=== PATIENT | female | born 1990 | race African-American/Black ===

== ENCOUNTER 2017-02-25 11:14 | Inpatient (IN) ==
[2017-02-25] MEDS: LACTATED RINGERS 1,000 ML IV SCH ×3 (11:30→14:54)
[2017-02-25] MEDS ORDERED: ONDANSETRON 4 MG/2 ML VIAL IV PRN ×2 (11:53→20:35)
[2017-02-25] MEDS ORDERED: ONDANSETRON 4 MG/2 ML VIAL IV ONE (11:56)
[2017-02-25] MEDS ORDERED: PROMETHAZINE 25 MG/1 ML VIAL IM ONE (11:56)
[2017-02-25] MEDS ORDERED: FAMOTIDINE 20 MG/2 ML VIAL IV ONE (11:56)
[2017-02-25] MEDS ORDERED: CITRIC ACID/SODIUM CITRATE 30 ML UDCUP PO ONE (11:56)
[2017-02-25] MEDS ORDERED: diphenhydrAMINE 50 MG/1 ML VIAL IV PRN ×2 (11:56)
[2017-02-25] MEDS ORDERED: hydrOXYzine HCL 25 MG/1 ML VIAL IM PRN (11:56)
[2017-02-25] MEDS ORDERED: fentaNYL 2 MCG/ROPIV 0.2% EPID 150 ML EPIDURAL SCH (12:00)
[2017-02-25] MEDS ORDERED: AMPICILLIN INJ 2,000 MG in SODIUM CHLORIDE 0.9% 100 ML IV ONE (12:09)
[2017-02-25 12:39] LABS: Basophils % 0.2 % (0.0-0.8); Eosinophils # 0.2 10*3/uL (0.0-0.87); Eosinophils % 1.4 % (0.00-10.9); Hemoglobin 11.7 GM/DL (12.0-16.0); Immature Granulocytes Absolute 0.12 #; Lymphocytes # 2.2 10*3/uL (1.4-4.0); Lymphocytes % 18.5 % (21.3-54.2); Mean Corpuscular HGB Conc 32.5 GM/DL (32-36); Mean Corpuscular Hemoglobin 30 PG (27-34); Mean Corpuscular Volume 91.4 FL (87-102); Mean Platelet Volume 13.1 FL (9.6-12.0); Monocytes # 1.1 10*3/uL (0.11-0.8); Monocytes % 9.3 % (1.7-12.7); Neutrophils # 8.2 10*3/uL (1.4-7.4); Neutrophils % 69.6 % (38.7-73.9); Platelet Count 172 T/CUMM (130-400); Red Blood Count 3.94 MC/CUMM (3.8-5.5); Red Cell Distribution Width 14.7 % (9.3-17.3); White Blood Count 11.7 T/CUMM (4-12)
[2017-02-25] MEDS: ePHEDrine 50 MG/ML AMP IV PRN ×2 (13:14→15:11)
[2017-02-25] MEDS ORDERED: OXYTOCIN/LR 20 UNIT/1,000 ML BAG IV ONE ×2 (15:09→20:35)
[2017-02-25 16:12] LABS: Apearance,Urine Clear (Clear); Bilirubin,Urine Negative (Negative); Blood, Urine Negative (Negative); Glucose,Urine (UA) Negative (Negative); Ketones,Urine 100 mg/dL (Negative); Nitrite,Urine Negative (Negative); Protein,Urine Negative; Urine Color Yellow (Yellow)
[2017-02-25] MEDS ORDERED: AMPICILLIN INJ 1,000 MG in SODIUM CHLORIDE 0.9% 100 ML IV SCH (16:30)
[2017-02-25 17:05] LABS: HIV Antigen/Antibody Result Nonreactive (Nonreactive); Hepatitis B Surface Ag Quant < 0.10 Index; Hepatitis B Surface Ag Result Negative (Negative); Rubella Antibody IgG 118.9 IU/ML
[2017-02-25] MEDS ORDERED: OXYTOCIN/LR 20 UNIT/1,000 ML BAG IV SCH (17:30)
[2017-02-25] MEDS ORDERED: METHYLERGONOVINE 0.2 MG/1 ML AMP ONE (19:16)
[2017-02-25] MEDS ORDERED: miSOPROStol 200 MCG TABLET ONE (19:16)
[2017-02-25] MEDS ORDERED: LIDOCAINE 1% 50 ML VIAL ONE (19:16)
[2017-02-25] MEDS ORDERED: BUTORPHANOL 2 MG/ML VIAL ONE (20:05)
[2017-02-25 20:16] LABS: Cord Venous Blood HCO3 20.3 MMOL/L; Cord Venous Blood PCO2 34.6 MMHG
[2017-02-25] MEDS ORDERED: LANOLIN 50% CREAM 0.3 OZ TUBE TOP PRN (20:35)
[2017-02-25] MEDS ORDERED: DIPH/TET/ACEL PERT BOOSTER VACCINE 0.5 ML VIAL IM ONE (20:35)
[2017-02-25] MEDS ORDERED: RHO(D) IMMUNE GLOBULIN 300 MCG SYRINGE IM ONE (20:35)
[2017-02-25] MEDS ORDERED: WITCH HAZEL PADS 100/JAR TOP PRN (20:35)
[2017-02-25] MEDS ORDERED: BISACODYL 10 MG SUPP RECTAL PRN (20:35)
[2017-02-25] MEDS ORDERED: ACETAMINOPHEN 325 MG TABLET PO PRN (20:35)
[2017-02-25] MEDS ORDERED: oxyCODONE/ACETAMINOPHEN 5-325 MG TABLET PO PRN (20:35)
[2017-02-25] MEDS ORDERED: BENZOCAINE 20%/MENTHOL 0.5% SPRAY 56 GM CAN TOP PRN (20:35)
[2017-02-25] MEDS ORDERED: HYDROCORTISONE 2.5% RECTAL CREAM 30 GM TUBE TOP PRN (20:35)
[2017-02-25] MEDS ORDERED: MEASLES/MUMPS/RUBELLA VACCINE 0.5 ML VIAL SUBCUT ONE (20:35)
[2017-02-25] MEDS: IBUPROFEN 800 MG TABLET PO PRN (22:08)
[2017-02-26 06:26] LABS: Basophils % 0.2 % (0.0-0.8); Eosinophils # 0.1 10*3/uL (0.0-0.87); Eosinophils % 0.7 % (0.00-10.9); Hematocrit 29.7 VOL% (35.7-47.0); Hemoglobin 9.8 GM/DL (12.0-16.0); Immature Granulocytes % 0.6 %; Immature Granulocytes Absolute 0.09 #; Lymphocytes # 2.2 10*3/uL (1.4-4.0); Lymphocytes % 13.9 % (21.3-54.2); Mean Corpuscular Hemoglobin 30 PG (27-34); Mean Corpuscular Volume 90.5 FL (87-102); Mean Platelet Volume 12.6 FL (9.6-12.0); Monocytes # 1.8 10*3/uL (0.11-0.8); Monocytes % 11.1 % (1.7-12.7); Neutrophils # 11.7 10*3/uL (1.4-7.4); Neutrophils % 73.5 % (38.7-73.9); Platelet Count 144 T/CUMM (130-400); Red Blood Count 3.28 MC/CUMM (3.8-5.5); Red Cell Distribution Width 14.6 % (9.3-17.3); White Blood Count 15.9 T/CUMM (4-12)
[2017-02-26] MEDS: DOCUSATE SODIUM 100 MG CAPSULE PO SCH ×2 (08:54→20:04)
[2017-02-26] MEDS: FERROUS SULFATE 325 MG TABLET PO SCH ×2 (08:55→20:03)
[2017-02-26] MEDS: oxyCODONE/ACETAMINOPHEN 5-325 MG TABLET PO PRN ×2 (11:30→20:05)
[2017-02-27 08:07] VITALS: BP 97/48
[2017-02-27] MEDS: IBUPROFEN 800 MG TABLET PO PRN (09:42)
[2017-02-27] MEDS: oxyCODONE/ACETAMINOPHEN 5-325 MG TABLET PO PRN (09:43)
[2017-02-27] MEDS: DOCUSATE SODIUM 100 MG CAPSULE PO SCH (09:43)
[2017-02-27] MEDS: FERROUS SULFATE 325 MG TABLET PO SCH (09:44)
== END 2017-02-27 15:00 | disposition home or self-care (01) | DRG 560 ==
LOC: N.LDOUT 11:14 → N.LD 11:15 → N.OB 22:24
PROVIDERS: ADMIT Obstetrics & Gynecology; ATTEND Obstetrics & Gynecology